=== PATIENT | female | born 1955 | race Caucasian/White ===

== ENCOUNTER 2019-01-13 21:15 | Emergency (ER) | payer OTHER ==
[2019-01-13 23:45] LABS: URINE BLOOD (Dip) POC Negative (NEGATIVE); URINE GLUCOSE (Dip) POC Negative (NEGATIVE); URINE KETONES (Dip) POC Negative (NEGATIVE); URINE LEUKOCYTE EST (Dip) POC Negative (NEGATIVE); URINE NITRITE (Dip) POC Negative (NEGATIVE); URINE TOTAL PROTEIN POC Negative (NEGATIVE)
== END 2019-01-14 00:27 | disposition home or self-care (01) ==
LOC: FTE 01-14 00:27
DX: F41.9 Anxiety disorder, unspecified (principal)
CPT/HCPCS: 81003; 82962; 93005; 99283-25